=== PATIENT | female | born 2000 | race Asian ===

== ENCOUNTER 2024-03-20 14:41 | Outpatient (CLI) | payer OTHER, SELFPAY ==
[2024-03-20 16:25] LABS: Vitamin D 25 Hydroxy 19.6 ng/mL
[2024-03-21 14:58] LABS: Insulin Level Total 131.7 uIU/mL
[2024-03-22 06:08] LABS: FSH 5.6 mIU/mL; LH 9.3 mIU/mL; Prolactin 4.9 ng/mL
[2024-03-22 08:28] LABS: DHEA-Sulfate 182 mcg/dL (14-349)
== END 2024-03-20 14:42 | disposition home or self-care (01) ==
PROVIDERS: PCP Nurse Practitioner Obstetrics & Gynecology; Visit Provider Nurse Practitioner Obstetrics & Gynecology
DX: N93.9 Abnormal uterine and vaginal bleeding, unspecified (principal)
CPT/HCPCS: 36415; 82306; 82627; 83001; 83002; 83525; 84146; 84402; 84403; 84443